=== PATIENT | female | born 1990 | race Hispanic/Latino ===

== ENCOUNTER 2023-07-08 07:33 | Emergency (ER) | payer OTHER ==
[2023-07-08] MEDS ORDERED: Acetaminophen 500 MG TAB ONE (08:04)
[2023-07-08] MEDS ORDERED: Magnesium 2 GM/50 ML BAG (IN WATER) ONE (08:05)
[2023-07-08] MEDS ORDERED: predniSONE 20 MG TAB ONE (08:05)
[2023-07-08 08:07] LABS: #Eosinphils 0.1 thou/uL (0.0-0.7); #Neutrophils 7.5 thou/uL (1.40-6.50); %Basophils 0.4 % (0.0-1.0); %Eosinophils 0.8 % (0.0-10.0); %Lymphocytes 14.2 % (21.0-51.0); %Monocytes 10.3 % (0.0-10.0); %Neutrophils 73.7 % (42.0-75.0); Hemoglobin 12.2 g/dL (12.0-16.0); Mean Corpuscular Hemoglobin 27.5 pg (27.0-31.0); Mean Corpuscular Volume 83.3 fl (78.0-98.0); Mean Platelet Volume 11.1 fL (7.4-10.4); Platelet Count 377 10x3/uL (130-400); Red Blood Cell (RBC) Count 4.44 mill/uL (4.20-5.40); White Blood Cell (WBC) Count 10.1 10x3/uL (4.8-10.8)
[2023-07-08 08:35] LABS: ALT (SGPT) 29 U/L (8-55); AST (SGOT) 33 U/L (5-34); Albumin 4.2 g/dL (3.5-5.0); Alkaline Phosphatase 82 U/L (40-110); Anion Gap 16 mmol/L (10-20); BHCG - Serum Negative (NEGATIVE); BUN (Urea Nitrogen) 6 mg/dL (7.0-18.7); Bilirubin, Total 0.6 mg/dL (0.2-1.2); Calc. Creatinine Clearance 0 mL/min (70-130); Calcium 8.5 mg/dL (7.8-10.44); Carbon Dioxide 21 mmol/L (22-29); Chloride 103 mmol/L (98-107); Estimated GFR 116; Glucose 117 mg/dL (70-105); Potassium 3.2 mmol/L (3.5-5.1); Pregs Control Background? CLEAR/WHITE (CLR/WHITE); Pregs Control Bar Appear? YES (CONTROL BAR); Protein, Total 8.2 g/dL (6.0-8.3); Sodium 137 mmol/L (136-145)
[2023-07-08 08:38] LABS: SARS-CoV-2 NAA Rapid Test Not Detected (NotDetected)
[2023-07-08] MEDS ORDERED: Potassium Chloride 20 MEQ TAB ONE (09:37)
== END 2023-07-08 09:42 | disposition home or self-care (01) ==
LOC: ERS 07:33
DX: J45.901 Unspecified asthma with (acute) exacerbation (principal); J18.9 Pneumonia, unspecified organism; E87.6 Hypokalemia; R03.0 Elevated blood-pressure reading, without diagnosis of hypertension; J45.909 Unspecified asthma, uncomplicated; Z79.899 Other long term (current) drug therapy
CPT/HCPCS: 71045; 80053; 84703; 85025; 87804; 93005; 96365; J3475; J7512; U0002

== ENCOUNTER 2023-07-14 06:31 | Emergency (ER) | payer OTHER ==
[2023-07-14] MEDS ORDERED: Loratadine 10 MG TAB ONE (07:36)
[2023-07-14] MEDS ORDERED: Famotidine 20 MG TAB ONE (07:43)
[2023-07-14] MEDS ORDERED: predniSONE 20 MG TAB ONE (07:54)
== END 2023-07-14 06:43 | disposition home or self-care (01) ==
LOC: ERS 06:31
DX: T78.40XA Allergy, unspecified, initial encounter (principal); L53.8 Other specified erythematous conditions
CPT/HCPCS: 99283; J7512